=== PATIENT | male | born 1980 | race Caucasian/White ===

== ENCOUNTER 2023-01-26 08:00 | Outpatient (RCR) | payer BC, SELFPAY ==
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
--- NOTE | 2023-04-05 10:31 | HP.OT.NRP ---
Patient Information Patient Information: DOMINIK CLEMENTE was seen in my office for initial evaluation on 01/19/23. The following Plan of Care was established for this patient: POC Established Initial Frequency: 1-2x /Week Initial Duration: 2 Months Anticipated Interventions Anticipated Interventions: A/AAROM/PROM, Strengthening, Triggerpoint Release, Modalities, Orthoses, Joint Protection/Energy Conservation, Ergonomic Education, Education re assistive Equipment, Education re Diagnosis and Home Program Last Seen Last Seen: This patient was last seen in our office 01/26/23. Pertinent comments regarding their Occupational therapy will appear below: Pt was seen for 2 OT session following a left distal radius fx. At pts 2nd visit he demo left wrist 25/30 no change from initial eval. pronation 50* following tx 30/30 wrist ROM. pt has not returned to therapy and due to time lapse in services pt is d/c. At this point I will be discontinuing this patient from occupational therapy. I would be happy to see this patient again in the future if found appropriate by the physician. Thank you! Rosalina Kelley, OTR/L, CHT
== END 2023-01-26 19:00 | disposition home or self-care (01) ==
LOC: OT 08:00
PROVIDERS: PCP Family Medicine; Referring Provider Orthopaedic Surgery Sports Medicine; Visit Provider Orthopaedic Surgery Sports Medicine
DX: S52.502D Unspecified fracture of the lower end of left radius, subsequent encounter for closed fracture with routine healing (principal)
CPT/HCPCS: 97110; 97140; 97166; 97530